=== PATIENT | male | born 1970 | race Hispanic/Latino ===

== ENCOUNTER 2018-08-08 09:49 | Emergency (ER) | payer SELFPAY ==
[~2018-08-08] VITALS: Ht 149.9 cm; Wt 60.0 kg
[~2018-08-08 09:49] MED LIST: BOOSTRIX IM; CIPROFLOXACN500 MG PO; DOXYCYCL HYC100 MG PO
[2018-08-08 10:25] VITALS: BP 139/85
== END 2018-08-08 10:30 | disposition home or self-care (01) | DRG 134 ==
LOC: ED 09:49
PROC: 09CN7ZZ Extirpation of Matter from Nasopharynx, Via Natural or Artificial Opening (ICD-10-PCS; principal; 2018-08-08)
DX: T17.208A Unspecified foreign body in pharynx causing other injury, initial encounter (principal); X58.XXXA Exposure to other specified factors, initial encounter

== ENCOUNTER 2018-09-26 17:55 | Emergency (ER) | payer OTHER ==
[~2018-09-26] VITALS: Ht 149.9 cm; Wt 69.0 kg
[2018-09-26] MEDS ORDERED: SULFACET SOD10 % OD (18:41)
[2018-09-26 19:20] VITALS: BP 132/88
== END 2018-09-26 19:20 | disposition home or self-care (01) | DRG 125 ==
LOC: ED 17:55
DX: S05.01XA Injury of conjunctiva and corneal abrasion without foreign body, right eye, initial encounter (principal); H57.11 Ocular pain, right eye; W22.8XXA Striking against or struck by other objects, initial encounter; Y93.89 Activity, other specified; Y92.89 Other specified places as the place of occurrence of the external cause; Y99.0 Civilian activity done for income or pay

== ENCOUNTER 2020-07-17 23:47 | Emergency (ER) | payer SELFPAY ==
[~2020-07-17] VITALS: Ht 149.9 cm; Wt 63.0 kg
[~2020-07-17 23:47] MED LIST changes: +SULFACET SOD10 % OD
[2020-07-18 00:19] LABS: HEMATOCRIT 36.9 % (39.0-50.0); HEMOGLOBIN 12.3 g/dl (14.0-18.0); IMMATURE GRANULOCYTES 0.1 % (0.0-5.0); MEAN CELL VOLUME 86.8 fL CALC (80.0-100.0); MEAN CORPUSCULAR HGB 28.9 pG CALC (26.0-32.0); MEAN CORPUSCULAR HGB CONC 33.3 g/dL CAL (32.0-36.0); NEUT# 4.71 thou/uL (1.82-7.42); RED BLOOD COUNT 4.25 mill/uL (4.70-6.10); RED CELL DISTRI WIDTH 13.2 % (11.5-15.5)
[2020-07-18 00:48] LABS: ALBUMIN 4.3 g/dL (3.2-5.0); ALKALINE PHOSPHATASE 106 u/l (38-126); ANION GAP 18 (6-22 (CALC)); BILIRUBIN, TOTAL 0.5 mg/dL (0.0-1.4); BUN 15 mg/dL (9-20); BUN/CREATININE RATIO 15 (12-20 (CALC)); CARBON DIOXIDE 23 mmol/l (22-30); CHLORIDE 93 mmol/l (95-108); ETHYL ALCOHOL 252 mg/dl (0-30); GFR > 60 ML/MIN (>=60 (CALC)); GFR FOR AFR.AMER. > 60 ML/MIN (>=60 (CALC)); POTASSIUM 3.9 mmol/l (3.5-5.1); SGOT/AST 36 u/l (17-59); SODIUM 130 mmol/l (137-146); TOTAL PROTEIN 7.6 g/dL (6.3-8.2)
[2020-07-18] MEDS ORDERED: KEFLEX500 M1 PO (01:41)
[2020-07-18 06:09] VITALS: BP 172/83
== END 2020-07-18 07:06 | disposition home or self-care (01) | DRG 605 ==
LOC: ED 23:47
PROVIDERS: Family Medicine
DX: S51.012A Laceration without foreign body of left elbow, initial encounter (principal); F10.129 Alcohol abuse with intoxication, unspecified; X58.XXXA Exposure to other specified factors, initial encounter